=== PATIENT | male | born 1970 | race Hispanic/Latino ===

== ENCOUNTER 2017-05-31 21:06 | Inpatient (IN) | payer BC ==
[2017-05-31] MEDS ORDERED: ASPIRIN PO ONE (21:13)
[2017-05-31 21:53] LABS: Bilirubin,Urine NEG (Negative); Blood,Urine SM (Negative); Color,Urine Straw (Yellow); Nitrite,Urine NEG (Negative); Protein,Urine <15 mg/dL mg/dL (Negative); Urobilinogen,Urine < 2.0 mg/dL (<2.0); WBC,Urine < 1.0 /HPF (0.0-6.0)
[2017-05-31 22:06] LABS: Hematocrit 53.1 % (35.5-45.6); Hemoglobin 18.1 gm/dl (11.8-15.2); Mean Corpuscular HGB Conc 34 % (32-34); Mean Corpuscular Hemoglobin 30 pg (28-32); Mean Corpuscular Volume 87 fl (84-94); Red Blood Count 6.09 M/mm3 (3.65-5.03); Red Cell Distribution Width 13.2 % (13.2-15.2)
[2017-05-31 22:14] LABS: BUN/Creatinine Ratio 12; Blood Urea Nitrogen 12 mg/dL (9-20); Calcium 9.6 mg/dL (8.4-10.2); Hemolysis Index 18
[2017-05-31 22:42] LABS: Platelet Count 249 K/mm3 (140-440)
[2017-05-31 23:23] LABS: Basophils % (Manual) 0 % (0.0-1.8); RBC Morphology Normal; Total Cells Counted 100
--- NOTE | 2017-06-01 04:05 | Emergency Department Report ---
ED Chest Pain HPI - General Chief Complaint: Chest Pain Stated Complaint: CHEST PAIN/HTN Time Seen by Provider: 06/01/17 03:40 Source: patient Mode of arrival: Ambulatory Limitations: No Limitations - History of Present Illness Initial Comments: Condition is a 47-year-old male presents to the emergency room with complaints of chest pain and shortness of breath. He states his symptoms are episodic and are coming more frequently. Patient stated this started last Friday and patient saw his injury/safety hazard assessment on Friday and had an stress test done and it was abnormal and patient is awaiting cath. Patient states that he was instructed by his injury/safety hazard assessment if the episode happens again to go to the emergency room. Patient states he had another episode just prior to arrival in the ER. Patient complains of palpitations, chest pain, shortness of breath, diaphoresis, anxiety , increased blood pressure, dyspnea on exertion, and dizziness, MD Complaint: chest pain -: Sudden Onset: during rest Pain Location: substernal, left chest, right chest Severity: severe Severity scale (0 -10): 7 Quality: heaviness, pressure Consistency: intermittent Improves With: rest, remaining still Worsens With: exertion, movement re: diaphoresis, dyspnea Other Symptoms: palpitations Treatments Prior to Arrival: none Aspirin use within the Past 7 Days: (1) Yes - Related Data Allergies Allergy/AdvReac Type Severity Reaction Status Date / Time No Known Allergies Allergy Unverified 05/31/17 21:09 Heart Score - HEART Score History: Slightly suspicious EKG: Normal Age: 45-65 Risk factors: 1-2 risk factors Troponin: < normal limit HEART Score: 2 ED Review of Systems ROS: Stated complaint: CHEST PAIN/HTN Other details as noted in HPI Comment: All other systems reviewed and negative Constitutional: see HPI, diaphoresis, malaise Eyes: denies: eye pain, eye discharge, vision change ENT: denies: ear pain, throat pain Respiratory: see HPI, shortness of breath, SOB with exertion, SOB at rest. denies: cough, wheezing Cardiovascular: chest pain, palpitations, dyspnea on exertion Endocrine: no symptoms reported Gastrointestinal: denies: abdominal pain, nausea, diarrhea Genitourinary: denies: urgency, dysuria Musculoskeletal: denies: back pain, joint swelling, arthralgia Skin: denies: rash, lesions Neurological: vertigo. denies: headache, weakness, paresthesias Psychiatric: anxiety. denies: depression Hematological/Lymphatic: denies: easy bleeding, easy bruising ED Past Medical Hx - Past Medical History Previous Medical History?: Yes Hx Hypertension: Yes Hx Diabetes: Yes Additional medical history: tacycardia, glaucoma - Surgical History Past Surgical History?: Yes Additional Surgical History: tonsilectomy - Family History Family history: no significant, hypertension, other (patient is adopted) - Social History Smoking Status: Never Smoker Substance Use Type: None ED Physical Exam - General Limitations: No Limitations General appearance: alert, in no apparent distress - Head Head exam: Present: atraumatic, normocephalic - Eye Eye exam: Present: normal appearance - ENT ENT exam: Present: mucous membranes moist - Neck Neck exam: Present: normal inspection - Respiratory Respiratory exam: Present: normal lung sounds bilaterally. Absent: respiratory distress - Cardiovascular Cardiovascular Exam: Present: regular rate, normal rhythm. Absent: systolic murmur, diastolic murmur, rubs, gallop - GI/Abdominal GI/Abdominal exam: Present: soft, normal bowel sounds - Rectal Rectal exam: Present: deferred - Extremities Exam Extremities exam: Present: normal inspection - Back Exam Back exam: Present: normal inspection - Neurological Exam Neurological exam: Present: alert, oriented X3 - Psychiatric Psychiatric exam: Present: normal affect, normal mood - Skin Skin exam: Present: warm, dry, intact, normal color. Absent: rash ED Course Vital Signs 06/01/17 04:20 Pulse Rate 102 H Respiratory 18 Rate Blood Pressure 152/84 [Left] O2 Sat by Pulse 95 Oximetry JEREMY score - Jeremy Score Age > 65: (0) No Aspirin use within the Past 7 Days: (1) Yes 3 or more CAD Risk Factors: (1) Yes 2 or more Angina events in past 24 hrs: (1) Yes Known CAD with more than 50% Stenosis: (0) No Elevated Cardiac Markers: (0) No ST Deviation Greater than 0.5mm: (0) No JEREMY Score: 3 ED Medical Decision Making - Lab Data Result diagrams: 05/31/17 21:45 05/31/17 21:45 - EKG Data -: EKG Interpreted by [place] EKG shows normal: sinus rhythm Rate: tachycardia - EKG Data Interpretation: no acute changes - Medical Decision Making Patient is a 47-year-old male who presents emergency room with palpitations, chest pain, shortness of breath, dyspnea on exertion, dizziness, diaphoresis. Will admit patient to the hospital to rule out ACS. Will consult hospitalist for admission - Differential Diagnosis cp. sob. thomas, acs. gerd Critical care attestation.: If time is entered above; I have spent that time in minutes in the direct care of this critically ill patient, excluding procedure time. ED Disposition Clinical Impression: Chest pain, Shortness of breath, Dizziness Disposition: 09 OP ADMIT IP TO THIS HOSP Is pt being admited?: Yes Does the pt Need Aspirin: No Condition: Serious Time of Disposition: 04:07
[2017-06-01] MEDS ORDERED: ZOFRAN IV PRN (05:49)
[2017-06-01] MEDS ORDERED: MILK OF MAGNESIA PO PRN (05:49)
[2017-06-01] MEDS ORDERED: TYLENOL PO PRN (05:49)
[2017-06-01] MEDS ORDERED: D50W (25GM) Syringe IV PRN ×2 (05:49→05:51)
[2017-06-01] MEDS ORDERED: MORPHINE IV PRN (05:49)
[2017-06-01] MEDS ORDERED: DULCOLAX PR PRN (05:49)
--- NOTE | 2017-06-01 06:04 | History and Physical Report ---
History of Present Illness Date of examination: 06/01/17 History of present illness: 47-year-old man with a history of hypertension, diabetes, tachycardia comes to the emergency room with complaints of chest pain. Pain is across the chest area which started today, achy sensation , intermittent in nature, lasting 5 minutes, intensity 5/10, no radiation, he cannot identify exacerbating or relieving factors. He had a stress test Lasix use it which was abnormal and he is scheduled for cardiac cath. He was told by his interactive media marketing director that if his chest pain recur to come to the emergency room for further treatment . Admits to shortness of breath,. He denies no nausea vomiting, diaphoresis Review Of Systems: Constitutional: no weight loss Ears, eyes, nose, mouth and throat: no nasal congestion, no nasal discharge, no sinus pressure, blurry vision, diplopia Neck: No neck pain or rigidity. Cardiovascular: No palpitations Respiratory: No shortness of breath, cough Gastrointestinal: No abdominal pain, hematochezia Genitourinary : no dysuria, frequency , hematuria Musculoskeletal: no muscle ache Integumentary: no rash, no pruritis Neurological: no parathesias, focal weakness Endocrine: no cold or heat intolerance, no polyuria or polydipsia Hematologic/Lymphatic: no easy bruising, no easy bleeding, no gland swelling Allergic/Immunologic: no urticaria, no angioedema. PAST MEDICAL HISTORY:hypertension, diabetes, tachycardia PAST SURGICAL HISTORY: Tonsillectomy, surgery and finger FAMILY HISTORY:hypertension SOCIAL HISTORY: Denies tobacco, drugs, social alcohol Medications and Allergies Allergies Allergy/AdvReac Type Severity Reaction Status Date / Time No Known Allergies Allergy Unverified 05/31/17 21:09 Active Meds: Active Medications Acetaminophen (Tylenol) 650 mg PO Q4H PRN PRN Reason: Pain MILD(1-3)/Fever >100.5/LLANES Aspirin (Baby Aspirin) 81 mg PO QDAY DEVIN Bisacodyl (Dulcolax) 10 mg IN QDAY PRN PRN Reason: Constipation unrelieved by MOM Dextrose (D50w (25gm) Syringe) 50 ml IV PRN PRN PRN Reason: Hypoglycemia Insulin Aspart (Novolog) 0 units SUB-Q ACHS DEVIN PRN Reason: Protocol Lisinopril (Zestril) 2.5 mg PO QDAY DEVIN Magnesium Hydroxide (Milk Of Magnesia) 30 ml PO Q4H PRN PRN Reason: Constipation Metoprolol Tartrate (Lopressor) 25 mg PO BID DEVIN Morphine Sulfate (Morphine) 2 mg IV Q4H PRN PRN Reason: Pain, Moderate (4-6) Ondansetron HCl (Zofran) 4 mg IV Q8H PRN PRN Reason: N/V unrelieved by Reglan Exam - Physical Exam Narrative exam: Gen. appearance: Patient lying in bed in no acute distress HEENT: Normocephalic/atraumatic, pupils equal round reactive to light, extra occular movement intact, no scleral icterus, no JVD or thyromegaly or nodule, neck is supple, mucous membrane moist, no erythema or exudate Heart: S1-S2, regular rate and rhythm Lungs: Clear to auscultation bilateral breathing comfortable Abdomen: Positive bowel sounds, nontender, nondistended, no organomegaly Extremities: No edema, cyanosis, clubbing Neuro:: Oriented 3 , cranial nerves II-12 intact, speech, motor intact Skin: No rash, nodules, warm dry - Constitutional Vitals: Temp Pulse Resp BP Pulse Ox 102 H 18 152/84 95 06/01/17 04:20 06/01/17 04:20 06/01/17 04:20 06/01/17 04:20 Results - Labs CBC & Chem 7: 05/31/17 21:45 05/31/17 21:45 Labs: Abnormal lab results 05/31/17 05/31/17 Range/Units 21:45 21:45 RBC 6.09 H (3.65-5.03) M/mm3 Hgb 18.1 H (11.8-15.2) gm/dl Hct 53.1 H (35.5-45.6) % Lymphocytes % (Manual) 48.0 H (13.4-35.0) % Glucose 134 H (75-100) mg/dL - Imaging and Cardiology EKG: image reviewed Chest x-ray: image reviewed Assessment and Plan Assessment Unstable angina Hypertension Diabetes Plan Admit to medicine Start Beta bob, aspirin, JOSE EDUARDO inhibitor Consult cardiology, DVT prophylaxis Check fingersticks and initiate insulin sliding scale
[2017-06-01] MEDS: NOVOLOG SUB-Q SCH ×4 (10:35→22:24)
[2017-06-01] MEDS: ZESTRIL PO SCH (10:42)
[2017-06-01] MEDS: LOPRESSOR PO SCH ×2 (10:45→22:24)
[2017-06-01] MEDS: BABY ASPIRIN PO SCH (10:45)
--- NOTE | 2017-06-01 11:32 | Consultation ---
History of Present Illness Consult date: 06/01/17 Consult reason: tachycardia History of present illness: This is a 47 year old male who is presenting with symptoms of palpitations and shortness of breath. She is a patient of [facility] and has had a recent stress thallium scan done in the office results are not available. Past History Past Medical History: diabetes, hypertension, hyperlipidemia Past Surgical History: No surgical history Social history: , smoking Family history: no significant family history Medications and Allergies Allergies Allergy/AdvReac Type Severity Reaction Status Date / Time No Known Allergies Allergy Unverified 05/31/17 21:09 Active Meds: Active Medications Acetaminophen (Tylenol) 650 mg PO Q4H PRN PRN Reason: Pain MILD(1-3)/Fever >100.5/LLANES Aspirin (Baby Aspirin) 81 mg PO QDAY [facility] Last Admin: 06/01/17 10:45 Dose: 81 mg Bisacodyl (Dulcolax) 10 mg [place] QDAY PRN PRN Reason: Constipation unrelieved by MOM Dextrose (D50w (25gm) Syringe) 50 ml IV PRN PRN PRN Reason: Hypoglycemia Insulin Aspart (Novolog) 0 units SUB-Q ACHS [facility] PRN Reason: Protocol Last Admin: 06/01/17 10:35 Dose: Not Given Lisinopril (Zestril) 2.5 mg PO QDAY [facility] Last Admin: 06/01/17 10:42 Dose: 2.5 mg Magnesium Hydroxide (Milk Of Magnesia) 30 ml PO Q4H PRN PRN Reason: Constipation Metoprolol Tartrate (Lopressor) 25 mg PO BID [facility] Last Admin: 06/01/17 10:45 Dose: 25 mg Morphine Sulfate (Morphine) 2 mg IV Q4H PRN PRN Reason: Pain, Moderate (4-6) Ondansetron HCl (Zofran) 4 mg IV Q8H PRN PRN Reason: N/V unrelieved by Reglan Review of Systems All systems: negative Cardiovascular: chest pain, palpitations, shortness of breath Physical Examination Vital Signs Pulse Resp BP Pulse Ox 102 H 18 152/84 95 06/01/17 04:20 06/01/17 04:20 06/01/17 04:20 06/01/17 04:20 General appearance: no acute distress, well-nourished HEENT: Positive: PERRL, Mucus Membranes Moist Neck: Positive: neck supple, trachea midline Cardiac: Positive: Reg Rate and Rhythm, S1/S2. Negative: Audible Murmur Lungs: Positive: clear to auscultation, Normal Breath Sounds Neuro: Positive: Grossly Intact Abdomen: Positive: Soft, Active Bowel Sounds. Negative: Tender, Distended Male genitourinary: Positive: normal Skin: Positive: Clear Incision: Cardiac Cath Site Musculoskeletal: No Pain, Normal Range of Motion Extremities: Present: normal. Absent: edema Results 05/31/17 21:45 05/31/17 21:45 CBC 05/31/17 Range/Units 21:45 WBC 10.3 (4.5-11.0) K/mm3 RBC 6.09 H (3.65-5.03) M/mm3 Hgb 18.1 H (11.8-15.2) gm/dl Hct 53.1 H (35.5-45.6) % Plt Count 249 (140-440) K/mm3 Comprehensive Metabolic Panel 05/31/17 Range/Units 21:45 Sodium 141 (137-145) mmol/L Potassium 4.1 (3.6-5.0) mmol/L Chloride 98.9 (98-107) mmol/L Carbon Dioxide 25 (22-30) mmol/L BUN 12 (9-20) mg/dL Creatinine 1.0 (0.8-1.5) mg/dL Glucose 134 H (75-100) mg/dL Calcium 9.6 (8.4-10.2) mg/dL EKG interpretations - Telemetry EKG Rhythm: Sinus Rhythm Assessment and Plan 1. Chest pain and palpitations 2. Essential hypertension 3. Type 2 diabetes mellitus Plan. Patient currently stable and chest pain-free we will obtain for the cardiac isoenzymes. Records of recent stress MPI done in the office will be obtained. Under
--- NOTE | 2017-06-01 12:59 | Progress Note ---
Assessment and Plan Assessment and plan: Chest pain. Patient reports recent treadmill stress test with Dr. Lopes in the office on last Friday. We will defer to cardiology with regards to further cardiac evaluation, i.e. Lexiscan versus cath. Cardiology following. Hypertension. Continue antihypertensive medications. Diabetes mellitus type 2. Continue Accu-Cheks and sliding scale insulin. History Interval history: Patient currently without chest pain or shortness of breath. Hospitalist Physical - Constitutional Vitals: Temp Pulse Resp BP Pulse Ox 76 18 135/82 97 06/01/17 12:20 06/01/17 07:44 06/01/17 12:20 06/01/17 07:16 General appearance: Present: no acute distress, well-nourished - EENT Eyes: Present: PERRL, EOM intact ENT: hearing intact, clear oral mucosa, dentition normal - Neck Neck: Present: supple, normal ROM - Respiratory Respiratory effort: normal Respiratory: bilateral: CTA - Cardiovascular Rhythm: regular Heart Sounds: Present: S1 & S2. Absent: gallop, rub - Extremities Extremities: no ischemia, No edema, Full ROM - Abdominal General gastrointestinal: soft, non-tender, non-distended, normal bowel sounds - Integumentary Integumentary: Present: clear, warm, dry - Neurologic Neurologic: CNII-XII intact, moves all extremities Results - Labs CBC & Chem 7: 05/31/17 21:45 05/31/17 21:45 Labs: Laboratory Last Values WBC 10.3 K/mm3 (4.5-11.0) 05/31/17 21:45 RBC 6.09 M/mm3 (3.65-5.03) H 05/31/17 21:45 Hgb 18.1 gm/dl (11.8-15.2) H 05/31/17 21:45 Hct 53.1 % (35.5-45.6) H 05/31/17 21:45 MCV 87 fl (84-94) 05/31/17 21:45 MCH 30 pg (28-32) 05/31/17 21:45 MCHC 34 % (32-34) 05/31/17 21:45 RDW 13.2 % (13.2-15.2) 05/31/17 21:45 Plt Count 249 K/mm3 (140-440) 05/31/17 21:45 Add Manual Diff Complete 05/31/17 21:45 Total Counted 100 05/31/17 21:45 Seg Neuts % (Manual) 44.0 % (40.0-70.0) 05/31/17 21:45 Band Neutrophils % 0 % 05/31/17 21:45 Lymphocytes % (Manual) 48.0 % (13.4-35.0) H 05/31/17 21:45 Reactive Lymphs % (Man) 0 % 05/31/17 21:45 Monocytes % (Manual) 7.0 % (0.0-7.3) 05/31/17 21:45 Eosinophils % (Manual) 1.0 % (0.0-4.3) 05/31/17 21:45 Basophils % (Manual) 0 % (0.0-1.8) 05/31/17 21:45 Metamyelocytes % 0 % 05/31/17 21:45 Myelocytes % 0 % 05/31/17 21:45 Promyelocytes % 0 % 05/31/17 21:45 Blast Cells % 0 % 05/31/17 21:45 Nucleated RBC % Not Reportable 05/31/17 21:45 Seg Neutrophils # Man 4.5 K/mm3 (1.8-7.7) 05/31/17 21:45 Band Neutrophils # 0.0 K/mm3 05/31/17 21:45 Lymphocytes # (Manual) 4.9 K/mm3 (1.2-5.4) 05/31/17 21:45 Abs React Lymphs (Man) 0.0 K/mm3 05/31/17 21:45 Monocytes # (Manual) 0.7 K/mm3 (0.0-0.8) 05/31/17 21:45 Eosinophils # (Manual) 0.1 K/mm3 (0.0-0.4) 05/31/17 21:45 Basophils # (Manual) 0.0 K/mm3 (0.0-0.1) 05/31/17 21:45 Metamyelocytes # 0.0 K/mm3 05/31/17 21:45 Myelocytes # 0.0 K/mm3 05/31/17 21:45 Promyelocytes # 0.0 K/mm3 05/31/17 21:45 Blast Cells # 0.0 K/mm3 05/31/17 21:45 WBC Morphology Not Reportable 05/31/17 21:45 Hypersegmented Neuts Not Reportable 05/31/17 21:45 Hyposegmented Neuts Not Reportable 05/31/17 21:45 Hypogranular Neuts Not Reportable 05/31/17 21:45 Smudge Cells Not Reportable 05/31/17 21:45 Toxic Granulation Not Reportable 05/31/17 21:45 Toxic Vacuolation Not Reportable 05/31/17 21:45 Dohle Bodies Not Reportable 05/31/17 21:45 Pelger-Huet Anomaly Not Reportable 05/31/17 21:45 Juno Rods Not Reportable 05/31/17 21:45 Platelet Estimate Appears normal 05/31/17 21:45 Clumped Platelets Not Reportable 05/31/17 21:45 Plt Clumps, EDTA Not Reportable 05/31/17 21:45 Large Platelets Not Reportable 05/31/17 21:45 Giant Platelets Not Reportable 05/31/17 21:45 Platelet Satelliting Not Reportable 05/31/17 21:45 Plt Morphology Comment Not Reportable 05/31/17 21:45 RBC Morphology Normal 05/31/17 21:45 Dimorphic RBCs Not Reportable 05/31/17 21:45 Polychromasia Not Reportable 05/31/17 21:45 Hypochromasia Not Reportable 05/31/17 21:45 Poikilocytosis Not Reportable 05/31/17 21:45 Anisocytosis Not Reportable 05/31/17 21:45 Microcytosis Not Reportable 05/31/17 21:45 Macrocytosis Not Reportable 05/31/17 21:45 Spherocytes Not Reportable 05/31/17 21:45 Pappenheimer Bodies Not Reportable 05/31/17 21:45 Sickle Cells Not Reportable 05/31/17 21:45 Target Cells Not Reportable 05/31/17 21:45 Tear Drop Cells Not Reportable 05/31/17 21:45 Ovalocytes Not Reportable 05/31/17 21:45 Helmet Cells Not Reportable 05/31/17 21:45 Smalls-Boaz Bodies Not Reportable 05/31/17 21:[address] [place] Rings Not Reportable 05/31/17 21:45 [place] Cells Not Reportable 05/31/17 21:45 Bite Cells Not Reportable 05/31/17 21:45 Crenated Cell Not Reportable 05/31/17 21:45 Elliptocytes Not Reportable 05/31/17 21:45 Acanthocytes (Spur) Not Reportable 05/31/17 21:45 Rouleaux Not Reportable 05/31/17 21:45 Hemoglobin C Crystals Not Reportable 05/31/17 21:45 Schistocytes Not Reportable 05/31/17 21:45 Malaria parasites Not Reportable 05/31/17 21:45 [place] Bodies Not Reportable 05/31/17 21:45 Hem Pathologist Commnt No 05/31/17 21:45 Sodium 141 mmol/L (137-145) 05/31/17 21:45 Potassium 4.1 mmol/L (3.6-5.0) 05/31/17 21:45 Chloride 98.9 mmol/L (98-107) 05/31/17 21:45 Carbon Dioxide 25 mmol/L (22-30) 05/31/17 21:45 Anion Gap 21 mmol/L 05/31/17 21:45 BUN 12 mg/dL (9-20) 05/31/17 21:45 Creatinine 1.0 mg/dL (0.8-1.5) 05/31/17 21:45 Estimated GFR > 60 ml/min 05/31/17 21:45 BUN/Creatinine Ratio 12 % 05/31/17 21:45 Glucose 134 mg/dL (75-100) H 05/31/17 21:45 POC Glucose 96 (70-105) 06/01/17 07:44 Calcium 9.6 mg/dL (8.4-10.2) 05/31/17 21:45 Troponin T < 0.010 ng/mL (0.00-0.029) 06/01/17 03:12 Urine Color Straw (Yellow) 05/31/17 21:33 Urine Turbidity Clear (Clear) 05/31/17 21:33 Urine pH 5.0 (5.0-7.0) 05/31/17 21:33 Ur Specific R[place] 1.008 (1.003-1.030) 05/31/17 21:33 Urine Protein <15 mg/dl mg/dL (Negative) 05/31/17 21:33 Urine Glucose (UA) Neg mg/dL (Negative) 05/31/17: Urine Ketones Tr mg/dL (Negative) 05/31/17 21: Urine Blood Sm (Negative) 05/31/17: Urine Nitrite Neg (Negative) 05/31/17: Urine Bilirubin Neg (Negative) 05/31/17: Urine Urobilinogen < 2.0 mg/dL (<2.0) 05/31/17: Ur Leukocyte Esterase Neg (Negative) 05/31/17: Urine WBC (Auto) < 1.0 /HPF (0.0-6.0) 05/31/17: Urine RBC (Auto) 4.0 /HPF (0.0-6.0) 05/31/17:
[2017-06-02 06:34] LABS: Basophils % (Auto) 0.5 % (0.0-1.8); Eosinophils # (Auto) 0.2 K/mm3 (0.0-0.4); Eosinophils % (Auto) 2.6 % (0.0-4.3); Hematocrit 48.8 % (35.5-45.6); Hemoglobin 16.9 gm/dl (11.8-15.2); Lymphocytes # (Auto) 3.3 K/mm3 (1.2-5.4); Lymphocytes % (Auto) 42.8 % (13.4-35.0); Mean Corpuscular HGB Conc 35 % (32-34); Mean Corpuscular Hemoglobin 30 pg (28-32); Mean Corpuscular Volume 87 fl (84-94); Monocytes # (Auto) 0.7 K/mm3 (0.0-0.8); Monocytes % (Auto) 8.7 % (0.0-7.3); Platelet Count 195 K/mm3 (140-440); Red Blood Count 5.61 M/mm3 (3.65-5.03); Red Cell Distribution Width 13.4 % (13.2-15.2)
[2017-06-02 06:54] LABS: BUN/Creatinine Ratio 13; Blood Urea Nitrogen 12 mg/dL (9-20); Calcium 8.8 mg/dL (8.4-10.2); Hemolysis Index 20
--- NOTE | 2017-06-02 08:16 | Progress Note ---
Assessment and Plan Assessment and plan: Chest pain. Patient reports recent treadmill stress test with Dr. Lopes in the office on last Friday. We will defer to cardiology with regards to further cardiac evaluation, i.e. Lexiscan versus cath. Cardiology following. Hypertension. Continue antihypertensive medications. Diabetes mellitus type 2. Continue Accu-Cheks and sliding scale insulin. History Interval history: Patient currently without chest pain or shortness of breath. Hospitalist Physical - Constitutional Vitals: Temp Pulse Resp BP Pulse Ox 98.2 F 98 H 20 121/74 96 06/02/17 05:30 06/02/17 05:30 06/02/17 05:30 06/02/17 05:30 06/02/17 05:30 General appearance: Present: no acute distress, well-nourished - EENT Eyes: Present: PERRL, EOM intact ENT: hearing intact, clear oral mucosa, dentition normal - Neck Neck: Present: supple, normal ROM - Respiratory Respiratory effort: normal Respiratory: bilateral: CTA - Cardiovascular Rhythm: regular Heart Sounds: Present: S1 & S2. Absent: gallop, rub - Extremities Extremities: no ischemia, No edema, Full ROM - Abdominal General gastrointestinal: soft, non-tender, non-distended, normal bowel sounds - Integumentary Integumentary: Present: clear, warm, dry - Neurologic Neurologic: CNII-XII intact, moves all extremities Results - Labs CBC & Chem 7: 06/02/17 05:58 06/02/17 05:58 Labs: Laboratory Last Values WBC 7.6 K/mm3 (4.5-11.0) 06/02/17 05:58 RBC 5.61 M/mm3 (3.65-5.03) H 06/02/17 05:58 Hgb 16.9 gm/dl (11.8-15.2) H 06/02/17 05:58 Hct 48.8 % (35.5-45.6) H 06/02/17 05:58 MCV 87 fl (84-94) 06/02/17 05:58 MCH 30 pg (28-32) 06/02/17 05:58 MCHC 35 % (32-34) H 06/02/17 05:58 RDW 13.4 % (13.2-15.2) 06/02/17 05:58 Plt Count 195 K/mm3 (140-440) 06/02/17 05:58 Lymph % (Auto) 42.8 % (13.4-35.0) H 06/02/17 05:58 [place] % (Auto) 8.7 % (0.0-7.3) H 06/02/17 05:58 Eos % (Auto) 2.6 % (0.0-4.3) 06/02/17 05:58 Baso % (Auto) 0.5 % (0.0-1.8) 06/02/17 05:58 Lymph # 3.3 K/mm3 (1.2-5.4) 06/02/17 05:58 [place] # 0.7 K/mm3 (0.0-0.8) 06/02/17 05:58 Eos # 0.2 K/mm3 (0.0-0.4) 06/02/17 05:58 Baso # 0.0 K/mm3 (0.0-0.1) 06/02/17 05:58 Add Manual Diff Complete 05/31/17 21:45 Total Counted 100 05/31/17 21:45 Seg Neutrophils % 45.4 % (40.0-70.0) 06/02/17 05:58 Seg Neuts % (Manual) 44.0 % (40.0-70.0) 05/31/17 21:45 Band Neutrophils % 0 % 05/31/17 21:45 Lymphocytes % (Manual) 48.0 % (13.4-35.0) H 05/31/17 21:45 Reactive Lymphs % (Man) 0 % 05/31/17 21:45 Monocytes % (Manual) 7.0 % (0.0-7.3) 05/31/17 21:45 Eosinophils % (Manual) 1.0 % (0.0-4.3) 05/31/17 21:45 Basophils % (Manual) 0 % (0.0-1.8) 05/31/17 21:45 Metamyelocytes % 0 % 05/31/17 21:45 Myelocytes % 0 % 05/31/17 21:45 Promyelocytes % 0 % 05/31/17 21:45 Blast Cells % 0 % 05/31/17 21:45 Nucleated RBC % Not Reportable 05/31/17 21:45 Seg Neutrophils # 3.5 K/mm3 (1.8-7.7) 06/02/17 05:58 Seg Neutrophils # Man 4.5 K/mm3 (1.8-7.7) 05/31/17 21:45 Band Neutrophils # 0.0 K/mm3 05/31/17 21:45 Lymphocytes # (Manual) 4.9 K/mm3 (1.2-5.4) 05/31/17 21:45 Abs React Lymphs (Man) 0.0 K/mm3 05/31/17 21:45 Monocytes # (Manual) 0.7 K/mm3 (0.0-0.8) 05/31/17 21:45 Eosinophils # (Manual) 0.1 K/mm3 (0.0-0.4) 05/31/17 21:45 Basophils # (Manual) 0.0 K/mm3 (0.0-0.1) 05/31/17 21:45 Metamyelocytes # 0.0 K/mm3 05/31/17 21:45 Myelocytes # 0.0 K/mm3 05/31/17 21:45 Promyelocytes # 0.0 K/mm3 05/31/17 21:45 Blast Cells # 0.0 K/mm3 05/31/17 21:45 WBC Morphology Not Reportable 05/31/17 21:45 Hypersegmented Neuts Not Reportable 05/31/17 21:45 Hyposegmented Neuts Not Reportable 05/31/17 21:45 Hypogranular Neuts Not Reportable 05/31/17 21:45 Smudge Cells Not Reportable 05/31/17 21:45 Toxic Granulation Not Reportable 05/31/17 21:45 Toxic Vacuolation Not Reportable 05/31/17 21:45 Dohle Bodies Not Reportable 05/31/17 21:45 Pelger-Huet Anomaly Not Reportable 05/31/17 21:45 Juno Rods Not Reportable 05/31/17 21:45 Platelet Estimate Appears normal 05/31/17 21:45 Clumped Platelets Not Reportable 05/31/17 21:45 Plt Clumps, EDTA Not Reportable 05/31/17 21:45 Large Platelets Not Reportable 05/31/17 21:45 Giant Platelets Not Reportable 05/31/17 21:45 Platelet Satelliting Not Reportable 05/31/17 21:45 Plt Morphology Comment Not Reportable 05/31/17 21:45 RBC Morphology Normal 05/31/17 21:45 Dimorphic RBCs Not Reportable 05/31/17 21:45 Polychromasia Not Reportable 05/31/17 21:45 Hypochromasia Not Reportable 05/31/17 21:45 Poikilocytosis Not Reportable 05/31/17 21:45 Anisocytosis Not Reportable 05/31/17 21:45 Microcytosis Not Reportable 05/31/17 21:45 Macrocytosis Not Reportable 05/31/17 21:45 Spherocytes Not Reportable 05/31/17 21:45 Pappenheimer Bodies Not Reportable 05/31/17 21:45 Sickle Cells Not Reportable 05/31/17 21:45 Target Cells Not Reportable 05/31/17 21:45 Tear Drop Cells Not Reportable 05/31/17 21:45 Ovalocytes Not Reportable 05/31/17 21:45 Helmet Cells Not Reportable 05/31/17 21:45 [place] Bodies Not Reportable 05/31/17 21:45 [place] Rings Not Reportable 05/31/17 21:45 [place] Cells Not Reportable 05/31/17 21:45 Bite Cells Not Reportable 05/31/17 21:45 Crenated Cell Not Reportable 05/31/17 21:45 Elliptocytes Not Reportable 05/31/17 21:45 Acanthocytes (Spur) Not Reportable 05/31/17 21:45 Rouleaux Not Reportable 05/31/17 21:45 Hemoglobin C Crystals Not Reportable 05/31/17 21:45 Schistocytes Not Reportable 05/31/17 21:45 Malaria parasites Not Reportable 05/31/17 21:45 [place] Bodies Not Reportable 05/31/17 21:45 Hem Pathologist Commnt No 05/31/17 21:45 Sodium 140 mmol/L (137-145) 06/02/17 05:58 Potassium 4.2 mmol/L (3.6-5.0) 06/02/17 05:58 Chloride 100.0 mmol/L (98-107) 06/02/17 05:58 Carbon Dioxide 28 mmol/L (22-30) 06/02/17 05:58 Anion Gap 16 mmol/L 06/02/17 05:58 BUN 12 mg/dL (9-20) 06/02/17 05:58 Creatinine 0.9 mg/dL (0.8-1.5) 06/02/17 05:58 Estimated GFR > 60 ml/min 06/02/17 05:58 BUN/Creatinine Ratio 13 % 06/02/17 05:58 Glucose 118 mg/dL (75-100) H 06/02/17 05:58 POC Glucose 82 (70-105) 06/01/17 22:28 Calcium 8.8 mg/dL (8.4-10.2) 06/02/17 05:58 Troponin T < 0.010 ng/mL (0.00-0.029) 06/01/17 03:12 Urine Color Straw (Yellow) 05/31/17 21:33 Urine Turbidity Clear (Clear) 05/31/17 21:33 Urine pH 5.0 (5.0-7.0) 05/31/17 21:33 Ur Specific [place] 1.008 (1.003-1.030) 05/31/17 21:33 Urine Protein <15 mg/dl mg/dL (Negative) 05/31/17 21:33 Urine Glucose (UA) Neg mg/dL (Negative) 05/31/17 21:33 Urine Ketones Tr mg/dL (Negative) 05/31/17 21:33 Urine Blood Sm (Negative) 05/31/17 21:33 Urine Nitrite Neg (Negative) 05/31/17 21:33 Urine Bilirubin Neg (Negative) 05/31/17 21:33 Urine Urobilinogen < 2.0 mg/dL (<2.0) 05/31/17 21:33 Ur Leukocyte Esterase Neg (Negative) 05/31/17 21:33 Urine WBC (Auto) < 1.0 /HPF (0.0-6.0) 05/31/17 21:33 Urine RBC (Auto) 4.0 /HPF (0.0-6.0) 05/31/17 21:33
[2017-06-02] MEDS: NOVOLOG SUB-Q SCH ×4 (09:46→23:00)
[2017-06-02] MEDS: BABY ASPIRIN PO SCH (10:00)
[2017-06-02] MEDS: LOPRESSOR PO SCH ×2 (10:01→21:18)
--- NOTE | 2017-06-02 11:00 | Progress Note ---
Assessment and Plan Chest pain Palpitations no arrhythmias on telemetry normal TSH Hypertension Diabetes mellitus We will recommend a cardiac cath for further ischemic evaluation. Subjective Date of service: 06/02/17 Interval history: Patient has no complaints. No reported cardiac events on telemetry overnight. Objective Vital Signs Temp Pulse Pulse Resp BP BP Pulse Ox 06/02/17 10:01 60 105/64 06/02/17 05:30 98.2 F 98 H 20 121/74 96 06/02/17 04:00 64 06/01/17 22:31 98 06/01/17 21:12 98.4 F 70 18 122/71 97 06/01/17 17:52 78 98 06/01/17 16:41 98.3 F 83 18 127/75 97 06/01/17 16:01 85 29 H 115/66 98 06/01/17 15:51 84 15 115/66 94 06/01/17 15:41 83 20 115/66 06/01/17 15:31 73 29 H 115/66 95 06/01/17 15:21 76 28 H 115/66 98 06/01/17 15:11 78 24 115/66 95 06/01/17 15:00 78 25 H 115/66 97 06/01/17 14:58 85 135/86 06/01/17 14:45 135/76 94 06/01/17 14:31 135/76 93 06/01/17 14:15 135/76 95 06/01/17 14:01 135/76 97 06/01/17 13:45 135/76 95 06/01/17 13:31 135/76 95 06/01/17 13:15 135/76 94 06/01/17 13:01 135/76 96 06/01/17 12:45 135/76 97 06/01/17 12:35 135/76 97 06/01/17 12:20 76 135/82 06/01/17 12:15 135/76 96 06/01/17 12:01 118/77 98 06/01/17 11:45 118/77 97 06/01/17 11:33 118/77 95 06/01/17 11:15 97 06/01/17 11:00 123/75 96 - Physical Examination General: No Apparent Distress HEENT: Positive: PERRL Neck: Positive: trachea midline Cardiac: Positive: Reg Rate and Rhythm Lungs: Positive: Decreased Breath Sounds Neuro: Positive: Grossly Intact Extremities: Absent: edema - Labs and Meds CBC 06/02/17 Range/Units 05:58 WBC 7.6 (4.5-11.0) K/mm3 RBC 5.61 H (3.65-5.03) M/mm3 Hgb 16.9 H (11.8-15.2) gm/dl Hct 48.8 H (35.5-45.6) % Plt Count 195 (140-440) K/mm3 Lymph # 3.3 (1.2-5.4) K/mm3 [place] # 0.7 (0.0-0.8) K/mm3 Eos # 0.2 (0.0-0.4) K/mm3 Baso # 0.0 (0.0-0.1) K/mm3 Comprehensive Metabolic Panel 06/02/17 Range/Units 05:58 Sodium 140 (137-145) mmol/L Potassium 4.2 (3.6-5.0) mmol/L Chloride 100.0 (98-107) mmol/L Carbon Dioxide 28 (22-30) mmol/L BUN 12 (9-20) mg/dL Creatinine 0.9 (0.8-1.5) mg/dL Glucose 118 H (75-100) mg/dL Calcium 8.8 (8.4-10.2) mg/dL - Imaging and Cardiology EKG: image reviewed
[2017-06-02] MEDS: ZESTRIL PO SCH (12:40)
[2017-06-02 17:51] LABS: BUN/Creatinine Ratio 16; Blood Urea Nitrogen 13 mg/dL (9-20); Hemolysis Index 17; INR 0.94 (0.87-1.13)
[2017-06-03] MEDS ORDERED: NACL 0.9% 500 ML 500 ML IV ONE (06:00)
[2017-06-03] MEDS ORDERED: ECOTRIN PO ONE (06:00)
[2017-06-03] MEDS: NOVOLOG SUB-Q SCH ×3 (08:56→17:21)
[2017-06-03] MEDS ORDERED: NITROGLYCERIN SYRINGE 3 ML ONE (10:04)
[2017-06-03] MEDS ORDERED: CALAN ONE (10:04)
[2017-06-03] MEDS ORDERED: HEPARIN 10,000 UNITS/10 ML ONE (10:04)
[2017-06-03] MEDS ORDERED: NACL 0.9% 500 ML 0 ML ONE (10:04)
[2017-06-03] MEDS ORDERED: HEPARIN/NS 5000 UNIT/500ML(CATH LAB) 1,000 ML IR ONE (10:04)
[2017-06-03] MEDS: SUBLIMAZE ONE ×3 (11:03→11:30)
[2017-06-03] MEDS: VERSED ONE ×2 (11:03→11:28)
[2017-06-03] MEDS: XYLOCAINE 2% INFILTRATI ONE ×2 (11:06→11:30)
[2017-06-03] MEDS: ZESTRIL PO SCH (12:00)
[2017-06-03] MEDS: LOPRESSOR PO SCH (12:00)
--- NOTE | 2017-06-03 12:06 | Cardiac Catherization Report ---
CARDIAC CATHETERIZATION REPORT REASON FOR PROCEDURE: Chest pain. DESCRIPTION OF PROCEDURE: The patient was prepped and draped in a sterile fashion after informed consent. Initial attempt at cannulation of the radial artery was unsuccessful, we turned our attention to the right femoral artery. The right femoral artery was entered using the Seldinger technique, followed by placement of a 6-[place] sheath. Selective left and right coronary angiography was performed using #4 right and left Cynthia catheters. A pigtail catheter was exchanged and advanced into the left ventricle. Left ventricular angiography was performed. The catheters were removed, sheath removed, and hemostasis achieved using an Angio-Seal device. The patient was returned to the postprocedure unit in stable condition. There were no complications. FINDINGS: HEMODYNAMICS: Left ventricle end diastolic pressure was 22, following coronary angiography. Ascending aortic pressure was 132/82. There was no significant pressure gradient on pullback across the aortic valve. CORONARY ANGIOGRAPHY: Left main coronary artery was angiographically normal. The left anterior descending artery and its diagonal branches were free of significant disease. A large ramus intermedius artery contained mild luminal irregularities. The circumflex artery and its obtuse marginal branches contained luminal irregularities. The right coronary artery was dominant and angiographically normal. There was normal left ventricular systolic function, ejection fraction 60%. CONCLUSION: 1. Essentially, angiographically near normal coronary arteries. 2. Normal left ventricular systolic function, ejection fraction 60%. RECOMMENDATION: Risk factor modification . JOB# [id number] CA/NTS
--- NOTE | 2017-06-03 12:08 | Event Note ---
Date: 06/03/17 Cardiac cath completed, no complications. Findings: Normal coronaries. EF 60%. OK for cardiac discharge.
[2017-06-03] MEDS ORDERED: NACL 0.9% 1000 ML 1,000 ML IV SCH (13:00)
[2017-06-03 15:38] VITALS: BP 121/73
--- NOTE | 2017-06-03 17:21 | Discharge Summary ---
Providers - Providers Date of Admission: 06/01/17 05:49 Attending physician: KATHARINA NOGUEIRA MD 06/01/17 05:49 Consult to Physician [CONS] Routine Consulting Provider: RAJEEV SERRANO Reason For Exam: cp Place consult to:: cardio Notified:: n 06/03/17 12:09 Consult to Cardiac Rehabilitation [CONS] Routine Reason For Exam: Cardiac Rehab Evaluation Primary care physician: ALYX COLLINS Hospitalization Reason for admission: Chest pain Condition: Serious Pertinent studies: Left heart cath clean coronaries Disposition: DC- TO HOME OR SELFCARE Time spent for discharge: 31 minutes - Discharge Diagnoses (1) Chest pain Status: Acute (2) Shortness of breath Status: Acute (3) Dizziness Status: Acute Core Measure Documentation - Palliative Care Palliative Care/ Comfort Measures: Not Applicable - Core Measures Any of the following diagnoses?: none Exam - Physical Exam Narrative exam: Not in cardiopulmonary distress. The patient appeared well nourished and normally developed. Vital signs as documented. Head exam is unremarkable. No scleral icterus . Neck is without jugular venous distension, thyromegaly, or carotid bruits. Lungs are clear to auscultation. Cardiac exam reveals regular rate and Rhythm. First and second heart sounds normal. No murmurs, rubs or gallops. Abdominal exam reveals normal bowel sounds, no masses, no organomegaly and no aortic enlargement. Extremities are nonedematous and both femoral and pedal pulses are normal. REPAIR COIL WINDER: Alert and oriented 3. No focal weakness. - Constitutional Vitals: Temp Pulse Resp BP Pulse Ox 98.0 F 88 19 121/73 97 06/03/17 07:52 06/03/17 14:30 06/03/17 14:30 06/03/17 14:30 06/03/17 17:12 Plan Activity: no restrictions Weight Bearing Status: Full Weight Bearing Diet: low cholesterol, low salt, diabetic Additional Instructions: Patient has his own [facility] and will follow there. Follow up with: ALYX COLLINS MD [Primary Care Provider] - 7 Days
[2017-06-04] MEDS ORDERED: HALFPRIN EC PO SCH (10:00)
== END 2017-06-03 18:51 | disposition home or self-care (01) | DRG 287 ==
LOC: ED 21:06 → 4A 06-01 05:49
PROVIDERS: ADMIT Internal Medicine; ATTEND Internal Medicine
PROC: 4A023N7 Measurement of Cardiac Sampling and Pressure, Left Heart, Percutaneous Approach (ICD-10-PCS; principal; 2017-06-03)
PROC: B2111ZZ Fluoroscopy of Multiple Coronary Arteries using Low Osmolar Contrast (ICD-10-PCS; 2017-06-03)
PROC: B2151ZZ Fluoroscopy of Left Heart using Low Osmolar Contrast (ICD-10-PCS; 2017-06-03)
DX: R07.89 Other chest pain (principal); I20.0 Unstable angina; I10 Essential (primary) hypertension; E11.9 Type 2 diabetes mellitus without complications; H40.9 Unspecified glaucoma; E78.5 Hyperlipidemia, unspecified; Z90.89 Acquired absence of other organs; Z82.49 Family history of ischemic heart disease and other diseases of the circulatory system
CPT/HCPCS: 36415; 80048; 81001; 82962; 83735; 84443; 84484; 85007; 85025; 85610; 93005; 93010; 93458; C1760; C1894; J1644; J2250; J3010; J7040; Q9967

== ENCOUNTER 2018-11-16 20:16 | Inpatient (IN) | payer BC ==
--- NOTE | 2018-11-16 21:33 | Emergency Department Report ---
Blank Doc - Documentation Documentation: This is a 48-year-old male that presents with dizziness and uncontrolled HTN. Stated has left arm pain and tingling sensation. Also had headaches. This initial assessment/diagnostic orders/clinical plan/treatment(s) is/are subject to change based on patient's health status, clinical progression and re- assessment by fellow clinical providers in the ED. Further treatment and workup at subsequent clinical providers discretion. Patient/guardians urged not to elope from the ED as their condition may be serious if not clinically assessed and managed. Initial orders include: 1- Patient sent to [facility] for further evaluation and treatment 2- labs 3- EKG 4- CT head
[2018-11-16 22:37] LABS: Basophils # (Auto) 0.1 K/mm3 (0.0-0.1); Basophils % (Auto) 1.4 % (0.0-1.8); Eosinophils # (Auto) 0.1 K/mm3 (0.0-0.4); Eosinophils % (Auto) 1.3 % (0.0-4.3); Hematocrit 51.7 % (35.5-45.6); Hemoglobin 17.5 gm/dl (11.8-15.2); Lymphocytes # (Auto) 2.6 K/mm3 (1.2-5.4); Lymphocytes % (Auto) 26.6 % (13.4-35.0); Mean Corpuscular HGB Conc 34 % (32-34); Mean Corpuscular Volume 87 fl (84-94); Monocytes # (Auto) 0.7 K/mm3 (0.0-0.8); Monocytes % (Auto) 7.4 % (0.0-7.3); Platelet Count 213 K/mm3 (140-440); Red Blood Count 5.93 M/mm3 (3.65-5.03); Red Cell Distribution Width 13.3 % (13.2-15.2)
--- NOTE | 2018-11-16 22:44 | Cat Scan Report ---
Head CT without intravenous contrast INDICATION: Headache and dizziness COMPARISON: None FINDINGS: The ventricles are normal in size and position. No hemorrhage or extra-axial fluid collecti on. No edema or mass effect. No focal infarct seen. Portions of the sinuses visualized are clear. No skull fracture identified. IMPRESSION: Negative head CT Automated exposure control was utilized to diminish radiation dose Signer Name: Sylvester Deshpande MD Signed: 11/16/2018 10:40 PM Workstation Name: [id number]
[2018-11-16 22:52] LABS: BUN/Creatinine Ratio 16; Blood Urea Nitrogen 16 mg/dL (9-20); Calcium 9.2 mg/dL (8.4-10.2); Hemolysis Index 24
--- NOTE | 2018-11-16 23:00 | Emergency Department Report ---
ED Dizziness HPI - General Chief Complaint: Dizziness Stated Complaint: DIZZY, DISORIENTED Time Seen by Provider: 11/16/18 21:31 Source: patient Mode of arrival: Ambulatory Limitations: No Limitations - History of Present Illness Initial Comments: 48-year-old male with history of hypertension, anxiety presents to ED after having an episode of sudden onset dizziness, feeling disoriented, and numbness to the left arm. Patient states this occurred at approximately 7:30 PM and lasted for approximately 30-40 minutes. Patient states he checked his blood pressure during the episode and it was elevated, 187/101. The patient denies any slurred speech, facial, weakness. Patient states he is currently back to his baseline. Patient also has history of anxiety and is unsure of his symptoms were due to his anxiety. MD Complaint: dizziness -: Sudden Timing: sudden onset, now resolved Description: lightheadedness History of Same: No History of Trauma: No Severity: severe Improves With: nothing Worsens With: nothing Associated Symptoms: confusion, shortness of breath - Related Data Home Medications Medication Instructions Recorded Confirmed Last Taken Aspirin 81 mg PO DAILY 06/01/17 06/01/17 06/01/17 Carafate 1,000 mg PO BID 06/01/17 06/01/17 1 Day Ago ~05/31/17 1000 mg Levothyroxine 25 mg PO DAILY 06/01/17 06/01/17 1 Day Ago ~05/31/17 25 mg Lisinopril 10 mg PO DAILY 06/01/17 06/01/17 06/01/17 10 mg Metoprolol 25 mg PO DAILY 06/01/17 06/01/17 06/01/17 25 mg Timolol 1 drop OU BID 06/01/17 06/01/17 06/01/17 Zocor 25 mg PO DAILY 06/01/17 06/01/17 1 Day Ago ~05/31/17 metFORMIN 500 mg PO BID 06/01/17 06/01/17 1 Day Ago ~05/31/17 500 mg Allergies Allergy/AdvReac Type Severity Reaction Status Date / Time No Known Allergies Allergy Verified 11/16/18 20:21 ED Review of Systems ROS: Stated complaint: DIZZY, DISORIENTED Other details as noted in HPI Comment: All other systems reviewed and negative Constitutional: denies: chills, fever Respiratory: shortness of breath Cardiovascular: chest pain Neurological: numbness, vertigo ED Past Medical Hx - Past Medical History Previous Medical History?: Yes Hx Hypertension: Yes Hx Diabetes: Yes Additional medical history: tacycardia, glaucoma - Surgical History Past Surgical History?: Yes Additional Surgical History: tonsilectomy - Social History Smoking Status: Light Tobacco Smoker - Medications Home Medications: Home Medications Medication Instructions Recorded Confirmed Last Taken Type Aspirin 81 mg PO DAILY 06/01/17 06/01/17 06/01/17 History Carafate 1,000 mg PO BID 06/01/17 06/01/17 1 Day Ago History ~05/31/17 1000 mg Levothyroxine 25 mg PO DAILY 06/01/17 06/01/17 1 Day Ago History ~05/31/17 25 mg Lisinopril 10 mg PO DAILY 06/01/17 06/01/17 06/01/17 History 10 mg Metoprolol 25 mg PO DAILY 06/01/17 06/01/17 06/01/17 History 25 mg Timolol 1 drop OU BID 06/01/17 06/01/17 06/01/17 History Zocor 25 mg PO DAILY 06/01/17 06/01/17 1 Day Ago History ~05/31/17 metFORMIN 500 mg PO BID 06/01/17 06/01/17 1 Day Ago History ~05/31/17 500 mg ED Physical Exam - General Limitations: No Limitations General appearance: alert, in no apparent distress - Head Head exam: Present: atraumatic, normocephalic - Eye Eye exam: Present: normal appearance, PERRL, EOMI - ENT ENT exam: Present: mucous membranes moist - Neck Neck exam: Present: normal inspection - Respiratory Respiratory exam: Present: normal lung sounds bilaterally. Absent: respiratory distress - Cardiovascular Cardiovascular Exam: Present: regular rate, normal rhythm - GI/Abdominal GI/Abdominal exam: Present: soft. Absent: distended, tenderness - Extremities Exam Extremities exam: Present: normal inspection - Neurological Exam Neurological exam: Present: alert, oriented X3, CN II-XII intact, other (NIHSS= 0). Absent: motor sensory deficit - Psychiatric Psychiatric exam: Present: normal affect, normal mood - Skin Skin exam: Present: warm, dry, intact, normal color ED Course Vital Signs 11/16/18 11/16/18 11/16/18 20:24 21:33 21:38 Temperature 98.8 F 98.8 F Pulse Rate 102 H 101 H 87 Respiratory 18 18 20 Rate Blood Pressure 195/91 195/91 Blood Pressure 160/88 [Right] O2 Sat by Pulse 98 98 95 Oximetry 11/16/18 11/16/18 11/16/18 22:22 22:31 22:45 Temperature Pulse Rate 77 77 Respiratory 18 22 Rate Blood Pressure 136/79 129/73 Blood Pressure [Right] O2 Sat by Pulse 97 96 96 Oximetry 11/16/18 23:01 Temperature Pulse Rate 78 Respiratory 26 H Rate Blood Pressure 129/73 Blood Pressure [Right] O2 Sat by Pulse 97 Oximetry - Consultations Consultation #1: 11/16/18 23:02 Spoke w/ neurologist, Dr Krause. Will admit for TIA workup. ED Medical Decision Making - Lab Data Result diagrams: 11/16/18 22:26 11/16/18 22:23 - EKG Data -: EKG Interpreted by Vt EKG shows normal: sinus rhythm, axis, intervals, QRS complexes Rate: normal - EKG Data Interpretation: nonspecific ST-T wave bev - Radiology Data Radiology results: report reviewed, image reviewed - Medical Decision Making 48-year-old male presents to ED from this dizziness, confusion, left arm numbness and tingling. States lasted 30-40 minutes. BP was elevated at the time. Pt currently back to his baseline. BP improved. CT Head normal. Pt admits to history of anxiety. TIA vs anxiety. Will admit to hospitalist for further workup. - Differential Diagnosis TIA, anxiety, hypertensive emergency, PE Critical care attestation.: If time is entered above; I have spent that time in minutes in the direct care of this critically ill patient, excluding procedure time. ED Disposition Clinical Impression: TIA (transient ischemic attack) Disposition: -09 OP ADMIT IP TO THIS HOSP Is pt being admited?: Yes Condition: Stable Time of Disposition: 23:59
[2018-11-16 23:38] LABS: INR 1.07 (0.87-1.13)
[2018-11-16 23:39] LABS: Partial Thromboplastin Time 26.3 Sec. (24.2-36.6)
[2018-11-17] MEDS ORDERED: REGLAN PO PRN (01:13)
[2018-11-17] MEDS ORDERED: ZOFRAN IV PRN (01:13)
[2018-11-17] MEDS ORDERED: MILK OF MAGNESIA PO PRN (01:13)
[2018-11-17] MEDS ORDERED: DULCOLAX PR PRN (01:13)
[2018-11-17] MEDS ORDERED: SODIUM CHLORIDE FLUSH SYRINGE 10 ML IV PRN (01:13)
[2018-11-17] MEDS ORDERED: TYLENOL PO PRN (01:13)
--- NOTE | 2018-11-17 01:18 | History and Physical Report ---
History of Present Illness Date of examination: 11/17/18 History of present illness: 48-year-old man with a history of hypertension, diabetes, comes to the emergency room with complaints of feeling dizzy, disoriented and difficulty finding words to express himself. When he got home his blood pressure was 187/101, also c omplain of numbness in left arm. He complain of chest pain, in the epigastric area, burning sensation , intermittent in nature, intensity 5/10, radiating to the right and left and also pain between his shoulder blades, he cannot identify exacerbating or relieving factors. He had cardiac cath last year, no blockages. Admits to shortness of breath which is baseline for him. He denies no nausea vomiting, diaphoresis Review Of Systems: Constitutional: no weight loss Ears, eyes, nose, mouth and throat: no nasal congestion, no nasal discharge, no sinus pressure, blurry vision, diplopia Neck: No neck pain or rigidity. Cardiovascular: No palpitations Respiratory: No shortness of breath, cough Gastrointestinal: No abdominal pain, hematochezia Genitourinary : no dysuria, frequency , hematuria Musculoskeletal: no muscle ache Integumentary: no rash, no pruritis Neurological: no parathesias, focal weakness Endocrine: no cold or heat intolerance, no polyuria or polydipsia Hematologic/Lymphatic: no easy bruising, no easy bleeding, no gland swelling Allergic/Immunologic: no urticaria, no angioedema. PAST MEDICAL HISTORY:hypertension, diabetes PAST SURGICAL HISTORY: Tonsillectomy, surgery and finger FAMILY HISTORY:hypertension SOCIAL HISTORY: Denies tobacco, drugs, social alcohol Medications and Allergies Allergies Allergy/AdvReac Type Severity Reaction Status Date / Time No Known Allergies Allergy Verified 11/16/18 20:21 Home Medications Medication Instructions Recorded Confirmed Last Taken Type Aspirin 81 mg PO DAILY 06/01/17 06/01/17 06/01/17 History Carafate 1,000 mg PO BID 06/01/17 06/01/17 1 Day Ago History ~05/31/17 1000 mg Levothyroxine 25 mg PO DAILY 06/01/17 06/01/17 1 Day Ago History ~05/31/17 25 mg Lisinopril 10 mg PO DAILY 06/01/17 06/01/17 06/01/17 History 10 mg Metoprolol 25 mg PO DAILY 06/01/17 06/01/17 06/01/17 History 25 mg Timolol 1 drop OU BID 06/01/17 06/01/17 06/01/17 History Zocor 25 mg PO DAILY 06/01/17 06/01/17 1 Day Ago History ~05/31/17 metFORMIN 500 mg PO BID 06/01/17 06/01/17 1 Day Ago History ~05/31/17 500 mg Active Meds: Active Medications Acetaminophen (Tylenol) 650 mg PO Q4H PRN PRN Reason: Pain, Mild (1-3) Aspirin (Aspirin) 325 mg PO QDAY DEVIN Atorvastatin Calcium (Lipitor) 40 mg PO QHS DEVIN Bisacodyl (Dulcolax) 10 mg MS QDAY PRN PRN Reason: Constipation Enoxaparin Sodium (Lovenox) 30 mg SUB-Q QDAY DEVIN Magnesium Hydroxide (Milk Of Magnesia) 30 ml PO Q4H PRN PRN Reason: Constipation Metoclopramide HCl (Reglan) 10 mg PO Q6H PRN PRN Reason: Nausea And Vomiting Ondansetron HCl (Zofran) 4 mg IV Q8H PRN PRN Reason: Nausea And Vomiting Sodium Chloride (Sodium Chloride Flush Syringe 10 Ml) 10 ml INJ PRN PRN PRN Reason: LINE FLUSH Exam - Physical Exam Narrative exam: Gen. appearance: Patient lying in bed in no acute distress HEENT: Normocephalic/atraumatic, pupils equal round reactive to light, extra occular movement intact, no scleral icterus, no JVD or thyromegaly or nodule, neck is supple, mucous membrane moist, no erythema or exudate Heart: S1-S2, regular rate and rhythm Lungs: Clear to auscultation bilateral breathing comfortable Abdomen: Positive bowel sounds, nontender, nondistended, no organomegaly Extremities: No edema, cyanosis, clubbing Neuro:: Oriented 3 , cranial nerves II-12 intact, speech, motor intact Skin: No rash, nodules, warm dry - Constitutional Vitals: Temp Pulse Resp BP Pulse Ox 98.8 F 78 26 H 129/73 97 11/16/18 21:33 11/16/18 23:01 11/16/18 23:01 11/16/18 23:01 11/16/18 23:01 Results - Labs CBC & Chem 7: 11/16/18 22:26 11/16/18 22:23 Labs: Abnormal lab results 11/16/18 11/16/18 Range/Units 22:23 22:26 RBC 5.93 H (3.65-5.03) M/mm3 Hgb 17.5 H (11.8-15.2) gm/dl Hct 51.7 H (35.5-45.6) % [place] % (Auto) 7.4 H (0.0-7.3) % Glucose 196 H (75-100) mg/dL - Imaging and Cardiology CT Scan - head: report reviewed Assessment and Plan Assessment TIA Chest pain Hypertension Diabetes Plan Admit to medicine Obtain MR head, neck, echo Start aspirin, statin Consult cardiology, Neurology, PT/OT DVT prophylaxis, IV hydralazine for BP control Check fingersticks and initiate insulin sliding scale
[2018-11-17] MEDS ORDERED: APRESOLINE IV PRN (01:25)
[2018-11-17] MEDS ORDERED: D50W (25GM) Syringe IV PRN (01:25)
[2018-11-17 03:32] LABS: Creatine Kinase MB 3.6 ng/mL (0.0-4.0)
[2018-11-17 07:15] LABS: Creatine Kinase MB 3.4 ng/mL (0.0-4.0)
[2018-11-17] MEDS: LOVENOX SUB-Q SCH (09:25)
[2018-11-17] MEDS: ASPIRIN PO SCH (09:25)
[2018-11-17] MEDS: HumaLOG SUB-Q SCH ×4 (10:17→21:44)
--- NOTE | 2018-11-17 12:52 | Consultation ---
History of Present Illness Consult date: 11/17/18 Consult reason: chest pain History of present illness: Patient is a 48-year old male who presented to this hospital with dizziness, headaches, uncontrolled hypertension, admitted for further evaluation and management. Blood pressure 195/[address] scan reports no acute intracranial abnormalities. Patient is known to [facility] and follows with Dr Lopes on a routine basis. His latest cardiac workup was done at this hospital a year ago. He underwent a cardiac cath that showed normal coronaries with a well preserved ejection fraction. Patient denies chest pain, he denies unusual shortness of breath and he denies palpitations. An ECG is sinus rhythm with non-specific Twave abnormalities. Medications and Allergies Allergies Allergy/AdvReac Type Severity Reaction Status Date / Time No Known Allergies Allergy Verified 11/16/18 20:21 Home Medications Medication Instructions Recorded Confirmed Last Taken Type Aspirin 81 mg PO DAILY 06/01/17 11/17/18 06/01/17 History Carafate 1,000 mg PO BID 06/01/17 11/17/18 1 Day Ago History ~05/31/17 1000 mg Levothyroxine 25 mg PO DAILY 06/01/17 11/17/18 1 Day Ago History ~05/31/17 25 mg Lisinopril 10 mg PO DAILY 06/01/17 11/17/18 06/01/17 History 10 mg Metoprolol 25 mg PO DAILY 06/01/17 11/17/18 06/01/17 History 25 mg Timolol 1 drop OU BID 06/01/17 11/17/18 06/01/17 History Zocor 25 mg PO DAILY 06/01/17 11/17/18 1 Day Ago History ~05/31/17 metFORMIN 500 mg PO BID 06/01/17 11/17/18 1 Day Ago History ~05/31/17 500 mg Active Meds: Active Medications Acetaminophen (Tylenol) 650 mg PO Q4H PRN PRN Reason: Pain, Mild (1-3) Aspirin (Aspirin) 325 mg PO QDAY DEVIN Last Admin: 11/17/18 09:25 Dose: 325 mg Documented by: Atorvastatin Calcium (Lipitor) 40 mg PO QHS [facility] Bisacodyl (Dulcolax) 10 mg AL QDAY PRN PRN Reason: Constipation Dextrose (D50w (25gm) Syringe) 50 ml IV PRN PRN PRN Reason: Hypoglycemia Enoxaparin Sodium (Lovenox) 40 mg SUB-Q QDAY [facility] Last Admin: 11/17/18 09:25 Dose: 40 mg Documented by: Hydralazine HCl (Apresoline) 5 mg IV Q6H PRN PRN Reason: Hypertension Insulin Human Lispro (Humalog) 0 unit SUB-Q ACHS [facility]; Protocol Last Admin: 11/17/18 10:17 Dose: Not Given Documented by: Magnesium Hydroxide (Milk Of Magnesia) 30 ml PO Q4H PRN PRN Reason: Constipation Metoclopramide HCl (Reglan) 10 mg PO Q6H PRN PRN Reason: Nausea And Vomiting Ondansetron HCl (Zofran) 4 mg IV Q8H PRN PRN Reason: Nausea And Vomiting Sodium Chloride (Sodium Chloride Flush Syringe 10 Ml) 10 ml IV PRN PRN PRN Reason: LINE FLUSH Physical Examination Vital Signs Temp Pulse Resp BP Pulse Ox 98.8 F 102 H 18 195/91 98 11/16/18 20:24 11/16/18 20:24 11/16/18 20:24 11/16/18 20:24 11/16/18 20:24 General appearance: no acute distress HEENT: Positive: PERRL Cardiac: Positive: Reg Rate and Rhythm Lungs: Positive: Normal Breath Sounds Neuro: Positive: Grossly Intact Extremities: Absent: edema Results 11/16/18 22:26 11/16/18 22:23 Cardiac Enzymes 11/17/18 11/17/18 Range/Units 02:57 06:42 CK-MB (CK-2) 3.6 3.4 (0.0-4.0) ng/mL Coagulation 11/16/18 Range/Units 22:55 PT 13.6 (12.2-14.9) Sec. INR 1.07 (0.87-1.13) APTT 26.3 (24.2-36.6) Sec. CBC 11/16/18 Range/Units 22:26 WBC 9.8 (4.5-11.0) K/mm3 RBC 5.93 H (3.65-5.03) M/mm3 Hgb 17.5 H (11.8-15.2) gm/dl Hct 51.7 H (35.5-45.6) % Plt Count 213 (140-440) K/mm3 Lymph # 2.6 (1.2-5.4) K/mm3 [place] # 0.7 (0.0-0.8) K/mm3 Eos # 0.1 (0.0-0.4) K/mm3 Baso # 0.1 (0.0-0.1) K/mm3 Comprehensive Metabolic Panel 11/16/18 Range/Units 22:23 Sodium 140 (137-145) mmol/L Potassium 4.1 (3.6-5.0) mmol/L Chloride 103.4 (98-107) mmol/L Carbon Dioxide 26 (22-30) mmol/L BUN 16 (9-20) mg/dL Creatinine 1.0 (0.8-1.5) mg/dL Glucose 196 H (75-100) mg/dL Calcium 9.2 (8.4-10.2) mg/dL Assessment and Plan Hypertension Diabetes Normal coronaries, EF 60% by [facility] 05/2017.
--- NOTE | 2018-11-17 16:39 | Discharge Summary ---
Providers - Providers Date of Admission: 11/17/18 00:55 Date of discharge: 11/17/18 Attending physician: ALIX SHANE 11/17/18 01:13 Occupational Therapy Evaluate and Treat [CONS] Routine Comment: Reason For Exam: Neuro deficits Physical Therapy Evaluation and Treat [CONS] Routine Comment: Reason For Exam: Neuro deficits 11/17/18 01:17 Consult to Physician [CONS] Routine Comment: Consulting Provider: ROOSEVELT GLASGOW Physician Instructions: Reason For Exam: cp Primary care physician: BARBY LAUREANO Hospitalization Condition: Stable Hospital course: Patient is a 48-year-old man with a history of hypertension, diabetes, sinus disorder s/p clean out by Dr. Thomas recently who presented with dizziness, lightheadedness. He did admit to chest pains which was evaluated by Cardiology. He was unable to get MRI due to claustrophobia, risk of sedation is greater than the benefit as patient is asymptomatic and neurological normal. Discharge Diagnoses: Ruled out CVA and TIA Chest pain, atypical, gERD related most likely Anxiety disorder: add Xanax Hypertension, accelerated Diabetes mellitus type 2 Disposition: DC-01 TO HOME OR SELFCARE Time spent for discharge: 31 minutes Core Measure Documentation - Palliative Care Palliative Care/ Comfort Measures: Not Applicable - Core Measures Any of the following diagnoses?: none - VTE Discharge Requirements Deep Vein Thrombosis/Pulmonary Embolism Present on Admission: No Has pt received <5 days of overlap therapy or INR<2.0: No Anticoagulant overlap therapy prescribed at discharge: No Contraindication No Overlap Therapy order at DC: Not Indicated Exam - Physical Exam Narrative exam: Gen: WDWN, NAD, Awake, Alert, Orientated HEENT: NCAT, EOMI, PERRL, OP Clear Neck: supple, no adenopathy, no thyromegaly, no JVD CVS/Heart: RRR, normal S1S2, pulses present bilaterally Chest/Lungs: CTA B, Symmetrical chest expansion, good air entry bilaterally GI/Abdomen: soft, NTND, good bowel sounds, no guarding or rebound /Bladder: no suprapubic tenderness, no CVA or paraspinal tenderness Extermity/Skin: no c/c/e, no obvious rash MSK: FROM x 4 Neuro: CN 2-12 grossly intact, no focal deficits, gait, strength, speech are normal Psych: calm - Constitutional Vitals: Temp Pulse Resp BP Pulse Ox 97.8 F 65 16 117/63 95 11/17/18 13:22 11/17/18 13:22 11/17/18 13:22 11/17/18 13:22 11/17/18 13:22 Plan Activity: other (no strenous activity unless cleared by PCP) Diet: low salt Additional Instructions: See PCP regarding get open MRI. Follow up with: BARBY LAUREANO MD [Primary Care Provider] - 3-5 Days Prescriptions: Pantoprazole [Protonix] 40 mg PO QDAY #30 tablet ALPRAZolam [Xanax TAB] 0.5 mg PO BID PRN #10 tab PRN Reason: Anxiety
--- NOTE | 2018-11-17 16:52 | Progress Note ---
Assessment and Plan Assessment and plan: Patient is a 48-year-old man with a history of hypertension, diabetes, sinus disorder s/p clean out by Dr. Thomas recently who presented with dizziness, lightheadedness. He did admit to chest pains which was evaluated by Cardiology. He was unable to get MRI due to claustrophobia, risk of sedation is greater than the benefit as patient is asymptomatic and neurological normal. Dizziness, Ruled out CVA and TIA: cta neck machine is broken, unable to get mra neck, will get carotid ultrasound,if negative will discharge. Chest pain, atypical, gERD related most likely; add ppi Anxiety disorder: add Xanax Hypertension, accelerated Diabetes mellitus type 2; ssi, ada History Interval history: Patient was seen and examined. Follow-up on current diagnosis. No Overnight events reported to me. Patient denies any chest pain, shortness breath, nausea/vomiting or severe headaches. Imaging, nursing note, chart, labs and old chart reviewed. Discussed with patient. Hospitalist Physical - Physical exam Narrative exam: Gen: WDWN, NAD, Awake, Alert, Orientated HEENT: NCAT, EOMI, PERRL, OP Clear Neck: supple, no adenopathy, no thyromegaly, no JVD CVS/Heart: RRR, normal S1S2, pulses present bilaterally Chest/Lungs: CTA B, Symmetrical chest expansion, good air entry bilaterally GI/Abdomen: soft, NTND, good bowel sounds, no guarding or rebound /Bladder: no suprapubic tenderness, no CVA or paraspinal tenderness Extermity/Skin: no c/c/e, no obvious rash MSK: FROM x 4 Neuro: CN 2-12 grossly intact, no focal deficits, gait, strength, speech are normal Psych: calm - Constitutional Vitals: Temp Pulse Resp BP Pulse Ox 97.8 F 65 16 117/63 95 11/17/18 13:22 11/17/18 13:22 11/17/18 13:22 11/17/18 13:22 11/17/18 13:22 General appearance: Present: no acute distress Results - Labs CBC & Chem 7: 11/16/18 22:26 11/16/18 22:23 Labs: Laboratory Last Values WBC 9.8 K/mm3 (4.5-11.0) 11/16/18 22:26 RBC 5.93 M/mm3 (3.65-5.03) H 11/16/18 22:26 Hgb 17.5 gm/dl (11.8-15.2) H 11/16/18 22: Hct 51.7 % (35.5-45.6) H 11/16/18 22: MCV 87 fl (84-94) 11/16/18 22: MCH 30 pg (28-32) 11/16/18 22: MCHC 34 % (32-34) 11/16/18 22:26 RDW 13.3 % (13.2-15.2) 11/16/18 22: Plt Count 213 K/mm3 (140-440) 11/16/18 22: Lymph % (Auto) 26.6 % (13.4-35.0) 11/16/18 22: [place] % (Auto) 7.4 % (0.0-7.3) H 11/16/18 22: Eos % (Auto) 1.3 % (0.0-4.3) 11/16/18 22: Baso % (Auto) 1.4 % (0.0-1.8) 11/16/18 22: Lymph # 2.6 K/mm3 (1.2-5.4) 11/16/18 22: [place] # 0.7 K/mm3 (0.0-0.8) 11/16/18 22: Eos # 0.1 K/mm3 (0.0-0.4) 11/16/18: Baso # 0.1 K/mm3 (0.0-0.1) 11/16/18 22: Seg Neutrophils % 63.3 % (40.0-70.0) 11/16/18 22: Seg Neutrophils # 6.2 K/mm3 (1.8-7.7) 11/16/18 22: PT 13.6 Sec. (12.2-14.9) 11/16/18 22:55 INR 1.07 (0.87-1.13) 11/16/18 22:55 APTT 26.3 Sec. (24.2-36.6) 11/16/18 22:55 135.00 ng/mlDDU (0-234) 11/16/18 22:55 Sodium 140 mmol/L (137-145) 11/16/18 22:23 Potassium 4.1 mmol/L (3.6-5.0) 11/16/18 22:23 Chloride 103.4 mmol/L (98-107) 11/16/18 22:23 Carbon Dioxide 26 mmol/L (22-30) 11/16/18 22:23 15 mmol/L 11/16/18 22:23 BUN 16 mg/dL (9-20) 11/16/18 22:23 1.0 mg/dL (0.8-1.5) 11/16/18 22:23 Estimated GFR > 60 ml/min 11/16/18 22:23 16 % 11/16/18 22:23 Glucose 196 mg/dL (75-100) H 11/16/18 22:23 POC Glucose 100 (70-105) 11/17/18 08:09 Calcium 9.2 mg/dL (8.4-10.2) 11/16/18 22:23 233 units/L (55-170) H 11/17/18 06:42 CK-MB (CK-2) 3.4 ng/mL (0.0-4.0) 11/17/18 06:42 CK-MB (CK-2) Rel Index 1.4 (0-4) 11/17/18 06:42 < 0.010 ng/mL (0.00-0.029) 11/17/18 06:42 Active Medications - Current Medications Current Medications: Generic Name Dose Route Start Last Admin Trade Name Freq PRN Reason Stop Dose Admin Acetaminophen 650 mg 11/17/18 01:13 Tylenol PO Q4H PRN Pain, Mild (1-3) Aspirin 325 mg 11/17/18 10:00 11/17/18 09:25 Aspirin PO 325 mg QDAY [facility] Administration Atorvastatin Calcium 40 mg 11/17/18 22:00 Lipitor PO QHS [facility] Bisacodyl 10 mg 11/17/18 01:13 Dulcolax IA QDAY PRN Constipation Dextrose 50 ml 11/17/18 01:25 D50w (25gm) Syringe IV PRN PRN Hypoglycemia Enoxaparin Sodium 40 mg 11/17/18 10:00 11/17/18 09:25 Lovenox SUB-Q 40 mg QDAY DEVIN Administration Hydralazine HCl 5 mg 11/17/18 01:25 Apresoline IV Q6H PRN Hypertension Insulin Human Lispro 0 unit 11/17/18 07:30 11/17/18 16:25 Humalog SUB-Q Not Given ACHS [facility] Protocol Magnesium Hydroxide 30 ml 11/17/18 01:13 Milk Of Magnesia PO Q4H PRN Constipation Metoclopramide HCl 10 mg 11/17/18 01:13 Reglan PO Q6H PRN Nausea And Vomiting Ondansetron HCl 4 mg 11/17/18 01:13 Zofran IV Q8H PRN Nausea And Vomiting Sodium Chloride 10 ml 11/17/18 01:13 Sodium Chloride Flush Syringe 10 Ml IV PRN PRN LINE FLUSH
[2018-11-18 09:12] VITALS: BP 112/71
[2018-11-18] MEDS: HumaLOG SUB-Q SCH (10:21)
[2018-11-18] MEDS: LOVENOX SUB-Q SCH (10:22)
[2018-11-18] MEDS: ASPIRIN PO SCH (10:22)
--- NOTE | 2018-11-18 10:51 | Progress Note ---
<EMMETTGIRISHSHRADDAH - Last Filed: 11/18/18 10:49> Assessment and Plan Hypertension -better Dizziness/Headaches Diabetes GERD Normal coronaries, EF 60% by [facility] 05/2017. Conservative cardiac management. Subjective Date of service: 11/18/18 Interval history: Patient denies chest pain and shortness of breath. Current BP of 112/71. Objective Vital Signs Temp Pulse Pulse Pulse Resp BP Pulse Ox 11/18/18 08:58 67 11/18/18 08:57 97.9 F 68 18 112/71 97 11/18/18 04:26 97.9 F 62 18 95/48 94 11/18/18 00:01 98.5 F 66 18 94/50 91 11/17/18 20:21 62 11/17/18 20:02 68 18 96 11/17/18 19:15 97.6 F 67 18 113/70 93 11/17/18 18:28 18 11/17/18 16:38 97.0 F L 63 18 110/57 96 11/17/18 13:22 97.8 F 65 16 117/63 95 11/17/18 11:24 78 - Physical Examination General: No Apparent Distress HEENT: Positive: PERRL Neck: Positive: trachea midline Cardiac: Positive: Reg Rate and Rhythm Lungs: Positive: Normal Breath Sounds Neuro: Positive: Grossly Intact Extremities: Absent: edema <ALYX WHITESIDE - Last Filed: 11/18/18 11:19> Objective Vital Signs Temp Pulse Pulse Pulse Resp BP Pulse Ox 11/18/18 08:58 67 11/18/18 08:57 97.9 F 68 18 112/71 97 11/18/18 04:26 97.9 F 62 18 95/48 94 11/18/18 00:01 98.5 F 66 18 94/50 91 11/17/18 20:21 62 11/17/18 20:02 68 18 96 11/17/18 19:15 97.6 F 67 18 113/70 93 11/17/18 18:28 18 11/17/18 16:38 97.0 F L 63 18 110/57 96 11/17/18 13:22 97.8 F 65 16 117/63 95 11/17/18 11:24 78
--- NOTE | 2018-11-18 11:03 | Vascular Lab Report ---
BILATERAL CAROTID DOPPLER ULTRASOUND INDICATION : Transient ischemic attack TECHNIQUE: Grayscale and color Doppler imaging performed through the neck. COMPARISON: None FINDINGS: Right: There is no significant atherosclerotic disease. Peak systolic velocity in the CCA is 117 cm /s with end-diastolic velocity of 11 cm/s. Peak systolic velocity in the proximal ICA is 84 cm/s with end-diastolic velocity of 23 cm/s. ICA to CCA ratio is less than 2. There is antegrade flow in the ECA and the vertebral artery. Left: There is mild partially calcified plaque in the carotid bulb.. Peak systolic velocity in the CC A is 122 cm/s with end-diastolic velocity of 20 cm/s. Peak systolic velocity in the proximal ICA is 9 5 cm/s with end-diastolic velocity of 37 cm/s. ICA to CCA ratio is less than 2. There is antegrade f low in the ECA and the vertebral artery. IMPRESSION: No hemodynamically significant stenosis by NASCET criteria. Signer Name: Matthew Corley Jr, MD Signed: 11/18/2018 10:59 AM Workstation Name: [id number]
[2018-11-18 13:16] LABS: Chol/HDL Ratio 4.09 %
== END 2018-11-18 12:40 | disposition home or self-care (01) | DRG 392 ==
LOC: ED 20:16 → 4A 11-17 00:55
PROVIDERS: ADMIT Internal Medicine; ATTEND Internal Medicine
DX: K21.9 Gastro-esophageal reflux disease without esophagitis (principal); I10 Essential (primary) hypertension; E11.9 Type 2 diabetes mellitus without complications; F40.240 Claustrophobia; F41.9 Anxiety disorder, unspecified; Z82.49 Family history of ischemic heart disease and other diseases of the circulatory system; Z79.82 Long term (current) use of aspirin; Z79.899 Other long term (current) drug therapy
CPT/HCPCS: 36415; 70450; 80048; 80061; 82550; 82553; 82962; 84484; 85025; 85379; 85610; 85730; 93005; 93010; 93880; G0378; A9270-GY; J1650